=== PATIENT | male | born 1990 | race Two or more races ===

== ENCOUNTER 2024-12-03 09:55 | Emergency (ER) | payer MEDICAID, SELFPAY ==
[2024-12-03 09:55] VITALS: BMI 50.2
[2024-12-03 10:14] VITALS: BP 164/89; PULSE 89; RESP 20; TEMP 36.8; O2SAT 97; BMI 50.2
--- NOTE | 2024-12-03 10:23 | PD.EDRME ---
Rapid Medical Screening Exam E Arrival date/time: 12/03/24 09:55 33-year-old male presents to the emergency department with complaints of generalized dizziness. Reports he has had 2 weeks of binge drinking takes about 5 shots of fireball, 18 pack/day of beer last drink was yesterday. I have greeted and performed a focused initial assessment of this patient. Initial appropriate labs ordered at this time. A comprehensive ED assessment and evaluation of the patient and analysis of all test and completion of medical decision making process will be conducted by additional ED provider. Chief Complaint: Weakness Time Seen by Provider: 12/03/24 10:00 Vital signs: Vital Signs Temperature 98.3 F 12/03/24 10:14 Pulse Rate 89 12/03/24 10:14 Respiratory Rate 20 12/03/24 10:14 Blood Pressure 164/89 H 12/03/24 10:14 Pulse Oximetry (%) 97 12/03/24 10:14 Oxygen Delivery Method Room Air 12/03/24 10:14
[2024-12-03 10:43] LABS: Basophils % (Auto) 0 % (0-2.5); Eosinophils % (Auto) 1 % (0-10); Hematocrit 43.9 % (41.0-53.0); Hemoglobin 14.7 g/dL (13.5-16.0); Immature Granulocytes % (Auto) 0 % (0-0); Immature Granulocytes Auto 0.02 Thou/mm3 (0.00-0.00); Lymphocytes # (Auto) 0.8 Thou/mm3 (1.0-4.8); Lymphocytes % (Auto) 14 % (10-50); Mean Corpuscular HGB Conc 33.5 g/dl (31.0-37.0); Mean Corpuscular Hemoglobin 27.6 pg (25.0-35.0); Mean Corpuscular Volume 82 fL (80-100); Monocytes # (Auto) 0.4 Thou/mm3 (0.0-0.8); Monocytes % (Auto) 7 % (0-12); Neutrophils # (Auto) 4.1 Thou/mm3 (1.8-7.7); Neutrophils % (Auto) 77 % (37-80); Nucleated Red Blood Cell % 0 /100 WBC (0); Platelet Count 190 Thou/mm3 (140-440); RDW Standard Deviation 47.7 fL (35.1-43.9); Red Blood Count 5.33 Miln/mm3 (4.50-5.90); White Blood Count 5.3 Thou/mm3 (3.8-10.6)
[2024-12-03 11:02] LABS: Alanine Aminotransferase 101 U/L (10-49); Albumin, Serum 4.6 gm/dL (3.5-5.0); Albumin/Globulin Ratio 1.4 (1.2-2.2); Alcohol, Blood Medical 49.1 mg/dL (0-10.0); Alkaline Phosphatase 101 U/L (46-116); Anion Gap 11 (7-16); Aspartate Amino Transferase 169 U/L (0-34); BUN/Creatinine Ratio 8 Ratio (12-20); Bilirubin,Total 0.6 mg/dL (0.3-1.2); Blood Urea Nitrogen 6 mg/dL (9-23); Calcium 8.9 mg/dL (8.3-10.6); Calcium (Corrected) 8.9 mg/dL (8.5-10.1); Carbon Dioxide 26.1 mMol/L (20.0-31.0); Chloride 103 mMol/L (98-107); Creatinine (Component) 0.8 mg/dL (0.6-1.3); Estimated Creatinine Clearance 199.3 mL/min (>60); Globulin 3.3 gm/dL (2.3-3.5); Glucose 141 mg/dL (74-106); Lipase 55 U/L (12-53); Magnesium 1.7 mg/dL (1.6-2.6); Osmolality,Calculated 279 (275-295); Potassium 3.9 mMol/L (3.4-5.1); Sodium 140 mMol/L (136-145); Total Protein 7.9 gm/dL (5.7-8.2); Troponin I < 0.002 ng/mL (0.0-0.045); eGFR > 60 See Note
[2024-12-03 15:48] VITALS: BP 161/97; PULSE 89; RESP 20; TEMP 36.9; O2SAT 98
--- NOTE | 2024-12-03 20:37 | PC.NURSE ---
ambulance her to take to ct pt no answer
--- NOTE | 2024-12-03 20:38 | PC.NURSE ---
CALLED PATIENT IN THE LOBBY AND OUTSIDE, NO ANSWER RECEIVED.
--- NOTE | 2024-12-03 21:14 | PC.NURSE ---
NO ANSWER FOR CT
== END 2024-12-03 21:14 | disposition left against medical advice (07) ==
LOC: SERX 10:28
PROVIDERS: Nurse Practitioner Primary Care; Emergency Provider Family Medicine
DX: R53.1 Weakness (principal); R42 Dizziness and giddiness; Z53.29 Procedure and treatment not carried out because of patient's decision for other reasons
CPT/HCPCS: 36415; 80053; 80320; 83690; 83735; 84484; 85025; 93005; 99281; G0480